=== PATIENT | female | born 1985 | race Caucasian/White ===

== ENCOUNTER 2021-07-04 01:16 | Observation (INO) ==
[2021-07-04] MEDS ORDERED: 0.9 % Sodium Chloride 1,000 ML IVC SCH (01:45)
[2021-07-04] MEDS ORDERED: Ketorolac 15 MG/ML VIAL IVP ONE (01:55)
[2021-07-04] MEDS ORDERED: MetroNIDAZOLE 500 MG/100 ML 500 MG/100 ML BAG IVPB ONE (02:00)
[2021-07-04 03:02] LABS: Basophils # 0.1 K/mcL (0.0-0.2); Basophils % 1.2 %; Eosinophils # 0.2 K/mcL (0.0-0.6); Eosinophils % 4.1 %; Hematocrit 35.6 % (35.3-44.9); Hemoglobin 12.6 g/dL (11.5-15.4); Immature Granulocytes % 0.2 % (0-4); Lymphocytes # 2.5 K/mcL (0.6-4.6); Lymphocytes % 49.9 %; Mean Corpuscular HGB Conc 35.4 g/dL (31.6-35.5); Mean Corpuscular Hemoglobin 31.1 pg (28.0-33.3); Mean Corpuscular Volume 87.9 fL (83.0-100.0); Monocytes # 0.4 K/mcL (0.0-1.3); Monocytes % 7.3 %; Neutrophils # 1.9 K/mcL (1.6-8.9); Platelet Count 160 K/mcL (140-400); Red Blood Count 4.05 M/mcL (3.82-4.97); Red Cell Distribution Width 12.2 % (11.5-14.5); Segmented Neutrophils % 37.3 %; White Blood Count 5.1 K/mcL (4.3-11.1)
[2021-07-04] MEDS ORDERED: *HR* FentaNYL (PF) 100 MCG/2 ML VIAL IVP ONE (03:02)
[2021-07-04] MEDS ORDERED: Naloxone 0.4 MG/ML INJ IVP PRN (03:14)
[2021-07-04] MEDS ORDERED: *HR* HYDROcodone/Acet 5/325 mg TABLET PO PRN (03:14)
[2021-07-04] MEDS ORDERED: Melatonin 3 MG TABLET PO PRN (03:14)
[2021-07-04] MEDS ORDERED: *HR* OxyCODONE Immed Rel 5 MG TABLET PO PRN (03:14)
[2021-07-04] MEDS ORDERED: Acetaminophen 325 MG TABLET PO PRN (03:14)
[2021-07-04 03:32] LABS: Platelet Estimate Normal (Normal); Reactive Lymphocytes Present (Not Present)
[2021-07-04 03:46] LABS: Alanine Aminotransferase 867 Units/L (7-52); Albumin 3.6 g/dL (3.5-5.7); Albumin/Globulin Ratio 1.2 (1.1-2.2); Alkaline Phosphatase 395 Units/L (34-104); Aspartate Amino Transferase 933 Units/L (13-39); BUN/Creatinine Ratio 10 (6-26); Bilirubin,Direct 2.1 mg/dL (0.0-0.2); Bilirubin,Indirect 1.1 mg/dL (0.0-1.0); Bilirubin,Total 3.2 mg/dL (0.3-1.0); Blood Urea Nitrogen 6 mg/dL (6-20); Calcium 8.5 mg/dL (8.6-10.3); Carbon Dioxide 30 mEq/L (23-29); Chloride 99 mEq/L (98-107); Glucose 107 mg/dL (70-105); Lipase 14 Units/L (11-82); Osmolality,Calculated 280 (280-300); Potassium 3.1 mEq/L (3.5-5.1); Sodium 136 mEq/L (136-145); Total Protein 6.6 g/dL (6.4-8.9); eGFR For African Americans > 60 (> 60); eGFR For Non-African Americans > 60 (> 60)
[2021-07-04] MEDS: Ringers Solution, Lactated 1,000 ML IVC SCH ×2 (04:27→15:12)
[2021-07-04] MEDS ORDERED: Potassium Chloride 40 MEQ, Lidocaine 1% 2 ML in 0.9 % Sodium Chloride 500 ML IVPB ONE ×2 (05:00→08:02)
[2021-07-04 07:30] LABS: Hepatitis B Surface Antigen Nonreactive (Nonreactive)
[2021-07-04 07:59] LABS: Hepatitis A Antibody IgM Nonreactive (Nonreactive)
[2021-07-04] MEDS ORDERED: *HR* Dextrose 50 % in Water (Vial) 50 ML VIAL IVP PRN (08:02)
[2021-07-04] MEDS ORDERED: Dextrose Gel 15 GM/37.5 ML TUBE PO PRN ×2 (08:02)
[2021-07-04] MEDS ORDERED: D5% in Water 1,000 ML IVC PRN (08:02)
[2021-07-04] MEDS: MetroNIDAZOLE 500 MG/100 ML 500 MG/100 ML BAG IVPB SCH ×3 (08:11→20:56)
[2021-07-04 08:14] LABS: Hepatitis B Core IgM Reactive (Nonreactive)
[2021-07-04 09:12] LABS: Acetaminophen < 10 mcg/mL (10-20); Ethanol < 10 mg/dL (Less than 10); Salicylate < 2.5 mg/dL (15.0-30.0)
[2021-07-04 09:58] LABS: Hepatitis C Virus Antibody Reactive (Nonreactive)
[2021-07-04] MEDS: Calcium Gluconate 1gm/50mL 1 GM/50 ML BAG IVPB SCH ×2 (10:00→11:05)
[2021-07-04] MEDS: Nicotine 21 MG PATCH.TD24 TD SCH (11:57)
[2021-07-04] MEDS ORDERED: Saliva Stimulant 44.3ml BOTTLE PO PRN (16:20)
[2021-07-04] MEDS: Ondansetron 4 MG/2 ML VIAL IVP PRN (17:10)
[2021-07-04] MEDS: Lactobacillus 1 EACH CAP.SPRINK PO SCH (20:20)
[2021-07-04] MEDS: *HR* Promethazine 25 MG/ML VIAL IM PRN (20:27)
[2021-07-04 21:34] LABS: INR 1.4
[2021-07-05] MEDS: MetroNIDAZOLE 500 MG/100 ML 500 MG/100 ML BAG IVPB SCH ×2 (02:24→09:41)
[2021-07-05 03:58] LABS: Hepatitis B Surface Antibody 172.22 mIU/mL
[2021-07-05 04:09] LABS: Hepatitis B Surface Antigen Nonreactive (Nonreactive)
[2021-07-05 04:38] LABS: Hepatitis B Core IgM Reactive (Nonreactive)
[2021-07-05] MEDS: Ondansetron 4 MG/2 ML VIAL IVP PRN (05:30)
[2021-07-05] MEDS: *HR* Promethazine 25 MG/ML VIAL IM PRN (07:02)
[2021-07-05 08:37] LABS: Hematocrit 38.7 % (35.3-44.9); Hemoglobin 13.7 g/dL (11.5-15.4); Mean Corpuscular HGB Conc 35.4 g/dL (31.6-35.5); Mean Corpuscular Volume 87.6 fL (83.0-100.0); Platelet Count 153 K/mcL (140-400); Red Blood Count 4.42 M/mcL (3.82-4.97); Red Cell Distribution Width 12.4 % (11.5-14.5)
[2021-07-05 08:46] LABS: INR 1.5
[2021-07-05 09:09] LABS: Lymphocytes # 4.3 K/mcL (0.6-4.6); Neutrophils # 2.7 K/mcL (1.6-8.9); Platelet Estimate Normal (Normal); Reactive Lymphocytes Present (Not Present)
[2021-07-05 09:18] LABS: Alanine Aminotransferase 1332 Units/L (7-52); Albumin 3.1 g/dL (3.5-5.7); Albumin/Globulin Ratio 1.1 (1.1-2.2); Alkaline Phosphatase 355 Units/L (34-104); Aspartate Amino Transferase 1532 Units/L (13-39); BUN/Creatinine Ratio 10 (6-26); Bilirubin,Total 4.5 mg/dL (0.3-1.0); Blood Urea Nitrogen 5 mg/dL (6-20); Calcium 8.4 mg/dL (8.6-10.3); Carbon Dioxide 25 mEq/L (23-29); Chloride 102 mEq/L (98-107); Globulin 2.9 g/dL (2.4-3.5); Glucose 89 mg/dL (70-105); Magnesium 1.7 mg/dL (1.6-2.6); Osmolality,Calculated 275 (280-300); Potassium 3.4 mEq/L (3.5-5.1); Sodium 134 mEq/L (136-145); eGFR For African Americans > 60 (> 60); eGFR For Non-African Americans > 60 (> 60)
[2021-07-05] MEDS: Nicotine 21 MG PATCH.TD24 TD SCH (09:39)
[2021-07-05] MEDS: Lactobacillus 1 EACH CAP.SPRINK PO SCH (09:40)
[2021-07-05 11:21] VITALS: BP 100/67; PULSE 100; TEMP 98.4; O2SAT 99
[2021-07-07 12:31] LABS: Hepatitis B Core Ab Total POSITIVE (Negative)
[2021-07-07 14:56] LABS: Hepatitis Be Antigen NEGATIVE (Negative)
[2021-07-07 21:27] LABS: HBV Quant by PCR NOT DETECTED
[2021-07-08 11:25] LABS: HBV Quant Interpretation NOT DETECTED (Not Detected); HBV Quant Log by PCR NOT DETECTED log IU/mL
[2021-07-08 11:43] LABS: HCV Quant Log 5.21 log IU/mL
[2021-07-08 13:47] LABS: HCV Quant Interpretation DETECTED (Not Detected)
[2021-07-08 13:47] LABS: HCV Quant Interpretation DETECTED (Not Detected); HCV Quant Log 5.43 log IU/mL
[2021-07-08 15:08] LABS: Hepatitis Be Antibody POSITIVE (Negative)
[2021-07-11 13:22] LABS: HCV Genotype by Sequencing 3A
== END 2021-07-05 13:48 | disposition left against medical advice (07) ==
LOC: EMEROOARM 01:16 → CDU 01:16 → SUATTDRO 03:10 → CDU 03:15 → 3ANU 07-05 07:25
PROVIDERS: ADMIT Internal Medicine; ATTEND Internal Medicine